=== PATIENT | female | born 1985 | race Caucasian/White ===

== ENCOUNTER 2016-03-22 10:39 | Emergency (ER) | payer MEDICAID ==
[~2016-03-22] VITALS: Wt 65.0 kg
[~2016-03-22 10:39] MED LIST: AMOX1TAB10 PO; BACTDS PO; CEPH-443 PO; FLUC150T17 PO
[2016-03-22] MEDS ORDERED: IBUPROFEN 600 MG TAB PO ONE (12:30)
--- NOTE | 2016-03-22 18:59 | ERD ---
ER Documentation Chief Complaint Date/Time DATE: 03/22/16 TIME: 18:57 Chief Complaint left upper arm contraceptive implant needs removal HPI 30-year-old woman has a contraceptive implant to the mid left arm and is requesting removal. It was placed a few months ago. She denies redness or swelling to the site, she does not smoke, denies fevers or chills, no pelvic pain or cramping, no dysuria, no vaginal discharge. ROS All systems reviewed and are negative except as per history of present illness. Medications Home Meds Active Scripts Fluconazole* (Diflucan*) 150 Mg Tablet, 150 MG PO ONCE, #1 TAB Take after completion of Antibiotics (Keflex ) Prov:TATIANA BARRIGA MD 12/18/15 Cephalexin* (Keflex*) 500 Mg Capsule, 500 MG PO QID for 5 Days, CAP Prov:TATIANA BARRIGA MD 12/18/15 Amox Tr/Potassium Clavulanate (Amox Tr-K Clv 875-125 Mg Tab) 1 Tab Tablet, 1 TAB PO BID, #20 TAB Prov:ACE ASTORGA PA-C 05/21/15 Sulfamethoxazole-Trimethoprim* (Bactrim* DS) 800-160 Mg Tab, 1 TAB PO BID for 5 Days, TAB Prov:ACE ASTORGA PA-C 05/21/15 Allergies Allergies: Coded Allergies: No Known Allergy (Unverified , 12/18/15) PMhx/Soc None Medical and Surgical Hx: pt denies Medical Hx, pt denies Surgical Hx Hx Alcohol Use: No Hx Substance Use: No Hx Tobacco Use: No Smoking Status: Never smoker FmHx Family History: No diabetes Physical Exam Vitals Vital Signs Date Time Temp Pulse Resp B/P Pulse Ox O2 Delivery O2 Flow Rate FiO2 03/22/16 10:45 98.6 89 20 140/78 100 Physical Exam GENERAL: Well-developed, well-nourished, well-hydrated, in no apparent distress , looks nontoxic in appearance HEENT: Moist mucous membranes, pink conjunctiva, no cervical spine tenderness or step-off deformities, no goiter, no jaundice or icterus, extraocular movements intact without pain. No submandibular induration, and no pharyngeal erythema NEURO: Alert and oriented 3, cranial nerves II through XII intact bilaterally, pupils equal round reactive to light, no focal deficits or facial asymmetry, sensation intact distally Strength 5/5 in upper and lower extremities bilaterally CARDIAC: Regular rate and rhythm, no murmurs rubs or gallops LUNGS: Clear bilaterally no wheezing crackles or stridor ABDOMEN: Soft nontender, no guarding, no rigidity, no rebound, no psoas sign no obturator sign. Normoactive bowel sounds SKIN: Warm and dry to touch, there is a firm contraceptive device under the skin the left medial arm without skin induration or erythema, no abrasions, contusions, or hematomas, no lacerations, no ecchymosis, no target lesions, and without ulcers EXTREMITIES: No clubbing cyanosis or edema, calves are bilaterally symmetrical, no Homans sign, no popliteal cord sign. Distal pulses equal and bilateral PSYCH: Normal affect without agitation or irritability Results 24 hrs Current Medications Medications (Trade) Dose Ordered Sig/Marcelo Route PRN Reason Start Time Stop Time Status Last Admin Dose Admin Ibuprofen (Motrin) 600 mg ONCE ONCE PO 03/22/16 12:30 03/22/16 12:31 DC 03/22/16 12:30 Procedures/MDM Reassurance was provided and I gave her both verbal and written instructions on follow-up. Patient feels much better at this time, and vital signs are normal, symptoms have improved. I did give strict instructions to return to the ED if symptoms continue or worsen, patient will otherwise follow-up with primary care physician. Patient understood instructions and agreed to plan. Departure Diagnosis: Primary Impression: Contraceptive management Contraceptive encounter type: surveillance of injectable Qualified Code: Z30.42 - Encounter for surveillance of injectable contraceptive Additional Impressions: Retained foreign body Well adult exam Condition: Good Patient Instructions: Foreign Body, Soft Tissue [Not Removed] GONZÁLEZ ROGERS MD Mar 22, 2016 18:59
== END 2016-03-22 13:14 | disposition home or self-care (01) ==
LOC: FTE 10:39
DX: Z30.42 Encounter for surveillance of injectable contraceptive (principal); Z18.89 Other specified retained foreign body fragments
CPT/HCPCS: Z7502; Z7610; 99282

== ENCOUNTER 2018-01-02 08:56 | Emergency (ER) | END 2018-01-02 12:20 | disposition home or self-care (01) ==